=== PATIENT | male | born 1985 | race Caucasian/White ===

== ENCOUNTER 2016-09-27 17:24 | Emergency (ER) | payer SELFPAY ==
[~2016-09-27] VITALS: Ht 177.8 cm; Wt 80.0 kg
[~2016-09-27 17:24] MED LIST: ROBA750T3 PO
[2016-09-27 17:46] VITALS: BP 150/91; PULSE 101; RESP 18; TEMP 98.8; O2SAT 97
== END 2016-09-27 22:22 | disposition left against medical advice (07) ==
LOC: PHED 17:24
DX: R68.89 Other general symptoms and signs (principal)
CPT/HCPCS: 99281

== ENCOUNTER 2016-11-20 11:28 | Emergency (ER) | payer SELFPAY ==
[~2016-11-20] VITALS: Ht 177.8 cm; Wt 81.5 kg
[2016-11-20 11:30] VITALS: BP 154/88; PULSE 67; RESP 14; TEMP 98.2; O2SAT 99
--- NOTE | 2016-11-20 12:02 | PD ---
HPI Chief Complaint: Psychiatric Symptoms Time Seen by Provider: 11:56 Travel History International Travel<30 days: No Contact w/Intl Traveler<30days: No Traveled to known affect area: No History of Present Illness HPI 31 year old male presents to the emergency department requesting detox. The patient states that he is addicted to opiates. He states that he takes whatever he can get on the street including Lortab, Percocet, Dilaudid, morphine , methadone. He states that he wants to get off of the drugs. He states this started due to chronic back pain and he was prescribed Lortab and Percocet and his addiction grew from there. He states that this time he swallows the morphine because they're extended release, but snorts everything else. He denies any IV drug use. However, he is concerned he is going that direction as advised by his friends are doing. The patient states that he was detoxing yesterday, but even to his habit today and took a morphine and a methadone prior to coming into the emergency room. The patient denies any fevers. No chest pain or shortness of breath. No abdominal pain. He vomited yesterday, but none today. He has no medical complaints. He denies any suicidal or homicidal ideation. 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 Patient states that he rarely takes alcohol, admits to drinking 2 beers yesterday. He also uses tobacco. PFSH Past Medical History Hx Anticoagulant Therapy: No ADHD: Yes (ON RITALIN CHILD THROUGH [employer]) Asthma: No Blood Disorders: No Anxiety: Yes Depression: Yes Heart Rhythm Problems: No Cancer: No Cardiovascular Problems: Yes (HEART MURMUR CHILD) High Cholesterol: No Chemotherapy: No Chest Pain: No Congestive Heart Failure: No COPD: No Cerebrovascular Accident: No Diabetes: No Diminished Hearing: No Endocrine: No Gastrointestinal Disorders: Yes GERD: Yes Genitourinary: No Hypertension: No Immune Disorder: No Implanted Vascular Access Dvce: No Musculoskeletal: No Neurologic: No Psychiatric: Yes (HX OF ADHD/ ANXIETY) Reproductive: No Respiratory: No Immunizations Current: Yes Myocardial Infarction: No Radiation Therapy: No Sleep Apnea: No Thyroid Disease: No Past Surgical History Oral Surgery: Yes (WISDOM TEETH REMOVED) Other Surgery: No Social History Alcohol Use: Yes Tobacco Use: Yes (1/2 PER WEEK ) Substance Use: Yes (morphine,dilaudid,methadone,percocet) Allergies-Medications (Allergen,Severity, Reaction): Coded Allergies: Naproxen (Verified Allergy, Severe, chest flutters, 04/06/16) Uncoded Allergies: CHLAMYDIA TREATMENT (Allergy, Severe, BLEEDING OUT PORES, 01/29/16) PER PT HAD SEVERAL MEDS FOR CHLAMYDIA AND WAS HOSPITALIZED NEXT DAY FOR DRUG REACTIONS Reported Meds & Prescriptions Reported Meds & Active Scripts Active Review of Systems Except as stated in HPI: all other systems reviewed are Neg Physical Exam Narrative GENERAL: Well-nourished, well-developed male patient, afebrile. Vital signs stable. SKIN: Focused skin assessment warm/dry. HEAD: Normocephalic. Atraumatic. EYES: No scleral icterus. No injection or drainage. NECK: Supple, trachea midline. No JVD or lymphadenopathy. CARDIOVASCULAR: Regular rate and rhythm without murmurs, gallops, or rubs. RESPIRATORY: Breath sounds equal bilaterally. No accessory muscle use. Lungs sounds are clear to auscultation. GASTROINTESTINAL: Abdomen soft, non-tender, nondistended. MUSCULOSKELETAL: No cyanosis, or edema. PSYCHIATRIC: No delusional thought processes. No hallucinations. Patient denies any thoughts of hurting himself or anybody else. He is only requesting detox at this time. Data Data Last Documented VS Vital Signs Date Time Temp Pulse Resp B/P Pulse Ox O2 Delivery O2 Flow Rate FiO2 11/20/16 11:30 98.2 67 14 154/88 99 MDM Medical Decision Making Medical Screen Exam Complete: Yes Emergency Medical Condition: Yes Medical Record Reviewed: Yes Differential Diagnosis Polysubstance abuse versus requesting detox versus chronic back pain Narrative Course 31-year-old male presents to the emergency department stating that he wants detox from opiates. He states that he swallows in snorts them. He last used this morning. He denies any psychiatric complaints and has no thoughts of hurting himself or anybody else. His only request at this time is detox. He has no medical complaints. I talked to the psychiatric department who called [facility] to see if there was a male detox bed available. However, they do not have a bed available at this time. I discussed this with the patient to continues to deny any thoughts of hurting himself or anybody else. I instructed him that I will give him the number to [facility] and he should call daily to see if they have a male detox bed available. The patient verbalizes agreement to this. I instructed to return immediately especially if he has depression or thoughts of hurting himself. He verbalizes understanding. The patient was discharged in stable condition with instructions, including return instructions and follow up instructions. Diagnosis Primary Impression: Opiate abuse, continuous [facility]errals: [facility] Patient Instructions: General Instructions, Opioid Dependence (ED), Opioid Withdrawal (ED) Departure Forms: Tests/Procedures, Work Release Enter return to work date: November 24, 2016 Additional Instructions: Please call daily to [facility] for a male detox bed. Return to the emergency department immediately for any worsening symptoms. Med/Other Pt SpecificInfo: No Change to Meds Disposition: 01 DISCHARGE HOME Condition: Stable Anneliese Begum November 20, 2016 12:02
== END 2016-11-20 12:19 | disposition home or self-care (01) ==
LOC: NEPC 11:28
DX: F11.20 Opioid dependence, uncomplicated (principal); F90.9 Attention-deficit hyperactivity disorder, unspecified type; F41.9 Anxiety disorder, unspecified; F41.8 Other specified anxiety disorders; Z72.0 Tobacco use
CPT/HCPCS: 99283

== ENCOUNTER 2017-07-20 08:22 | Emergency (ER) | payer SELFPAY ==
[~2017-07-20] VITALS: Ht 177.8 cm; Wt 79.0 kg
[2017-07-20 08:48] VITALS: BP 131/80; PULSE 61; RESP 16; TEMP 98.3; O2SAT 99
--- NOTE | 2017-07-20 09:24 | PD ---
HPI Chief Complaint: Eye Problems/Injury Time Seen by Provider: 09:17 Travel History International Travel<30 days: No Contact w/Intl Traveler<30days: No Traveled to known affect area: No History of Present Illness HPI Patient comes in complaining of foreign body sensation in his left eye ongoing for 2 days. Patient states he was at work when he had some sawdust come over his safety glasses causing foreign body sensation. Patient states he has rinsed his eye as well as taking a cotton swab to the inside of his upper eyelid , and having his grandmother look for the foreign body with no improvement of symptoms. Patient states he feels symptoms are getting worse and today awoke with some crusting of his left eye causing his eye to be matted shut. Denies anything making symptoms better or worse. Denies any radiation of the pain. Describes pain as an irritation/foreign body sensation. Denies contact lens use. PFSH Past Medical History Hx Anticoagulant Therapy: No ADHD: Yes (ON RITALIN CHILD THROUGH [employer]) Asthma: No Blood Disorders: No Anxiety: Yes Depression: Yes Heart Rhythm Problems: No Cancer: No Cardiovascular Problems: Yes (HEART MURMUR CHILD) High Cholesterol: No Chemotherapy: No Chest Pain: No Congestive Heart Failure: No COPD: No Cerebrovascular Accident: No Diabetes: No Diminished Hearing: No Endocrine: No Gastrointestinal Disorders: Yes GERD: Yes Genitourinary: No Hypertension: No Immune Disorder: No Implanted Vascular Access Dvce: No Musculoskeletal: No Neurologic: No Psychiatric: Yes (HX OF ADHD/ ANXIETY) Reproductive: No Respiratory: No Immunizations Current: Yes Myocardial Infarction: No Radiation Therapy: No Sleep Apnea: No Thyroid Disease: No Past Surgical History Oral Surgery: Yes (WISDOM TEETH REMOVED) Other Surgery: No Social History Alcohol Use: Yes Tobacco Use: Yes (1/2 PER WEEK ) Substance Use: No (reformed) Allergies-Medications (Allergen,Severity, Reaction): Coded Allergies: naproxen (Unverified Allergy, Severe, chest flutters, 07/20/17) Uncoded Allergies: CHLAMYDIA TREATMENT (Allergy, Severe, BLEEDING OUT PORES, 01/29/16) PER PT HAD SEVERAL MEDS FOR CHLAMYDIA AND WAS HOSPITALIZED NEXT DAY FOR DRUG REACTIONS Reported Meds & Prescriptions Reported Meds & Active Scripts Active Erythromycin Opth Oint 5 Mg/Gm Oint 1 Applic LEFT EYE QID Review of Systems Except as stated in HPI: all other systems reviewed are Neg Physical Exam Narrative GENERAL: Well-developed, well nourished, in no acute distress, and non-ill appearing. SKIN: Focused skin assessment warm and dry. HEAD: Atraumatic. Normocephalic. EYES: Pupils equal and round. EOMI. No scleral icterus. No injection or drainage. No obvious foreign body. ENT: No nasal bleeding or discharge. Mucous membranes pink and moist. NECK: Trachea midline. Supple. No nuclear rigidity. RESPIRATORY: No accessory muscle use. No respiratory distress. MUSCULOSKELETAL: No obvious deformities. No clubbing. No cyanosis. No edema. Full range of motion. NEUROLOGICAL: Awake and alert. No obvious cranial nerve deficits. Motor grossly within normal limits. Normal speech. PSYCHIATRIC: Appropriate mood and affect; insight and judgment normal. Data Data Last Documented VS Vital Signs Date Time Temp Pulse Resp B/P (MAP) Pulse Ox O2 Delivery O2 Flow Rate FiO2 07/20/17 08:48 98.3 61 16 131/80 (97) 99 Orders Orders Proparacaine 0.5% Opth Soln (Alcaine 0.5 (07/20/17 09:30) Eye Irrigation (07/20/17 09:30) Tetanus/Diphtheria Tox Adult (Tetanus/Di (07/20/17 10:15) Ed Discharge Order (07/20/17 10:05) [facility] Medical Decision Making Medical Screen Exam Complete: Yes Emergency Medical Condition: Yes Differential Diagnosis Retained foreign body, corneal abrasion, corneal ulcer, conjunctivitis Narrative Course Patient initially reported his tetanus shot was not up-to-date then prior to receiving tetanus shot here today states that he did receive within the last year. The patient presented with suspect for foreign body to eye. The patient underwent Michel Lamp exam with stain, as well as lid eversion and eye irrigation with Joe lens. The foreign body was not seen and therefore unable to be removed without incident. No history to suspect corneal ulceration as well. There is no evidence of iritis, glaucoma, preseptal cellulitis, periorbital or orbital cellulitis. Will place patient on ophthalmologic antibiotics for infection prophylaxis until evaluation and removal of foreign body by ophthalmology. This was discussed with the patient. The patient was instructed to follow up with ophthalmology for removal. The patient was also instructed to return here if condition worsened, increased pain, decreased vision, swelling around the eye or as needed. Ophthalmology referral was given. The patient agreed with plan. Patient in no obvious distress upon re-evaluation. Patient was asked if they wanted to speak to my attending, which the patient did not wish to do at this time. Any questions/concerns in reference to patient diagnosis/condition discussed and clarified prior to patient's discharge. Reinforced sheer importance of close follow up with patient's primary physician or primary care clinic. Instructed patient to return to ED immediately, if symptoms return/ worsen. Patient showed understanding of above instructions. Further instructions and recommendations were detailed in discharge paperwork. Patient ambulated without difficulty out of ED at discharge. Procedures Procedure Narrative Verbal consent was obtained. Affected eye was anesthetized using proparacaine. Fluorescein staining and Wood lamp exam performed with no uptake seen. Negative Leena sign. No hyphema, hyperemia, or rust ring. Eyelid was everted with no foreign body noted. No tenderness bilateral temporal arteries to palpation. Eye was irrigated using a Joe's lens a liter of fluid without improvement of symptoms. Patient reports pain is worse with causing his eye improved with keeping his eye open. Eyelid was everted a second time after irrigation still no foreign body noted. Patient tolerated procedure well. Diagnosis Primary Impression: Sensation of foreign body in eye Referrals: Avani Dyson MD 1 day Patient Instructions: Eye Foreign Body (ED), General Instructions Additional Instructions: Follow-up with Dr. Dyson today or tomorrow for reevaluation. Contact her office for an appointment. Take all medication as prescribed. Return to the emergency department if symptoms get worse. Med/Other Pt SpecificInfo: Prescription(s) given Scripts Erythromycin Opth Oint (Erythromycin Opth Oint) 5 Mg/Gm Oint 1 APPLIC LEFT EYE QID for Infection, #1 TUBE 0 Refills Prov: Eric Hernandez MD 07/20/17 Disposition: 01 DISCHARGE HOME Condition: Stable Vinnie Lugo Jul 20, 2017 09:24
[2017-07-20] MEDS ORDERED: PROPARACAINE HCL 0.5% OPHT SOLN 15 ML BTL LEFT EYE ONE (09:30)
[2017-07-20] MEDS ORDERED: ERYTOIN10 LEFT EYE (10:06)
[2017-07-20] MEDS ORDERED: TETANUS/DIPHTHERIA TOXOID ADULT 0.5 ML VIAL IM ONE (10:15)
== END 2017-07-20 10:36 | disposition home or self-care (01) ==
LOC: PHEFT 08:22
DX: H57.8 Other specified disorders of eye and adnexa (principal); F41.9 Anxiety disorder, unspecified; F32.9 Major depressive disorder, single episode, unspecified; R01.1 Cardiac murmur, unspecified; K21.9 Gastro-esophageal reflux disease without esophagitis
CPT/HCPCS: 90471

== ENCOUNTER 2017-08-01 09:26 | Emergency (ER) | payer SELFPAY ==
[~2017-08-01] VITALS: Ht 177.8 cm; Wt 75.0 kg
[~2017-08-01 09:26] MED LIST changes: +ERYTOIN10 LEFT EYE; -ROBA750T3 PO
[2017-08-01 09:31] VITALS: BP 153/80; PULSE 86; RESP 16; TEMP 99.1; O2SAT 97
[2017-08-01 09:38] VITALS: BP 147/94; PULSE 90; RESP 17; TEMP 98.8; O2SAT 99
[2017-08-01] MEDS ORDERED: ONDANSETRON HCL 4 MG/2 ML VIAL IV PUSH ONE (09:45)
[2017-08-01] MEDS ORDERED: MORPHINE SULFATE 2 MG/ML INJ IV PUSH ONE (09:45)
--- NOTE | 2017-08-01 09:48 | PD ---
HPI Chief Complaint: Fall Time Seen by Provider: 09:41 Travel History International Travel<30 days: No Contact w/Intl Traveler<30days: No Traveled to known affect area: No History of Present Illness HPI 31-year-old male patient with history of no significant past medical issues, presents to the ER today because he states that he was not on a 10 foot ladder an had slipped in fell on the latter but his left arm got caught in 1 of the rungs and he will suspended by the arm, had to climb back up on the ledge and get his arm freed. He has currently complaining of left arm pain. He denies any head injury, loss of consciousness, chest pains, neck pains, or any other issues or injuries. He denies fall to the ground. Modifying Factors: None Associated Signs & Symptoms: Left arm injury, fall from ladder Risk Factors: None PFSH Past Medical History Hx Anticoagulant Therapy: No ADHD: Yes (ON RITALIN CHILD THROUGH [employer]HS[employer]) Asthma: No Blood Disorders: No Anxiety: Yes Depression: Yes Heart Rhythm Problems: No Cancer: No Cardiovascular Problems: Yes (HEART MURMUR CHILD) High Cholesterol: No Chemotherapy: No Chest Pain: No Congestive Heart Failure: No COPD: No Cerebrovascular Accident: No Diabetes: No Diminished Hearing: No Endocrine: No Gastrointestinal Disorders: Yes GERD: Yes Genitourinary: No Hypertension: No Immune Disorder: No Implanted Vascular Access Dvce: No Musculoskeletal: No Neurologic: No Psychiatric: Yes (HX OF ADHD/ ANXIETY) Reproductive: No Respiratory: No Immunizations Current: Yes Myocardial Infarction: No Radiation Therapy: No Sleep Apnea: No Thyroid Disease: No Past Surgical History Oral Surgery: Yes (WISDOM TEETH REMOVED) Other Surgery: No Social History Alcohol Use: Yes Tobacco Use: Yes (1/2 PER WEEK ) Substance Use: No (reformed) Allergies-Medications (Allergen,Severity, Reaction): Coded Allergies: naproxen (Unverified Allergy, Severe, chest flutters, 08/01/17) aspirin (Verified Allergy, Unknown, 08/01/17) Uncoded Allergies: CHLAMYDIA TREATMENT (Allergy, Severe, BLEEDING OUT PORES, 01/29/16) PER PT HAD SEVERAL MEDS FOR CHLAMYDIA AND WAS HOSPITALIZED NEXT DAY FOR DRUG REACTIONS Reported Meds & Prescriptions Reported Meds & Active Scripts Active Review of Systems Except as stated in HPI: all other systems reviewed are Neg Physical Exam Narrative GENERAL: Well-developed young male patient currently in mild distress. Awake an oriented 3. SKIN: Focused skin assessment warm/dry. HEAD: Atraumatic. Normocephalic. EYES: Pupils equal and round. No scleral icterus. No injection or drainage. ENT: No nasal bleeding or discharge. Mucous membranes pink and moist. NECK: Trachea midline. No JVD. Supple. No midline C-spine tenderness. CARDIOVASCULAR: Regular rate and rhythm. No murmur appreciated. RESPIRATORY: No accessory muscle use. Clear to auscultation. Breath sounds equal bilaterally. GASTROINTESTINAL: Abdomen soft, non-tender, nondistended. Hepatic and splenic margins not palpable. MUSCULOSKELETAL: No obvious deformities. No clubbing. No cyanosis. No edema. EXTREMITIES: No clubbing, cyanosis, or edema. There his notable edema in tenderness over the left forearm. No tenderness to palpation at the snuffbox or hand or wrist area. Neurovascularly intact. NEUROLOGICAL: Awake and alert. No obvious cranial nerve deficits. Motor grossly within normal limits. Normal speech. PSYCHIATRIC: Appropriate mood and affect; insight and judgment normal. Data Data Last Documented VS Vital Signs Date Time Temp Pulse Resp B/P (MAP) Pulse Ox O2 Delivery O2 Flow Rate FiO2 08/01/17 09:38 98.8 90 17 147/94 (111) 99 Orders Orders Elbow, Limited (Ap&Lat) (08/01/17 09:41) Forearm (2vws) (08/01/17 09:41) Wrist, Limited (Ap&Lat) (08/01/17 09:41) Morphine Inj (Morphine Inj) (08/01/17 09:45) Ondansetron Inj (Zofran Inj) (08/01/17 09:45) Ed Discharge Order (08/01/17 11:01) [facility] Medical Decision Making Medical Screen Exam Complete: Yes Emergency Medical Condition: Yes Medical Record Reviewed: Yes Interpretation(s) Last 24 hours Impressions Wrist X-Ray 08/01/17940 Signed Impressions: Service Date/Time: Tuesday, August 01, 2017 10:16 - CONCLUSION: Normal examination for a patient of this age. Jamar Harmon MD Radius/Ulna X-Ray 08/01/17940 Signed Impressions: Service Date/Time: Tuesday, August 01, 2017 10:14 - CONCLUSION: Normal examination for a patient of this age. Jamar Harmon MD Elbow X-Ray 08/01/17 0941 Signed Impressions: Service Date/Time: Tuesday, August 01, 2017 10:17 - CONCLUSION: Normal examination for a patient of this age. Jamar Harmon MD Differential Diagnosis Left arm injury: Contusion versus strain versus fractures Narrative Course X-rays do not show any signs of acute fractures. It appears that he has contusions to the forearm. At this point, he has neurovascularly intact. The plan would be to release him with symptomatic relief for pain, ice, elevate the extremity. Follow-up with primary care doctor. Return for any worsening in pain, swelling, an as needed. The plan was not discussed with him when he states understanding. Diagnosis Primary Impression: Contusion of left forearm Med/Other Pt SpecificInfo: Prescription(s) given Scripts Tramadol-Acetaminophen (Tramadol-Acetaminophen) 37.5-325 mg Tab 1 TAB PO Q6H Y for PAIN, #12 TAB 0 Refills Prov: Robby Mello MD 08/01/17 Disposition: 01 DISCHARGE HOME Condition: Stable Robby Mello MD Aug 01, 2017 09:48
--- NOTE | 2017-08-01 10:41 | RADRPT ---
EXAM DATE/TIME: 08/01/2017 10:14 [facility] COMPARISON: No previous studies available for comparison. INDICATIONS : Fell off ladder pain left wrist radiating into left elbow. MEDICAL HISTORY : None. SURGICAL HISTORY : None. ENCOUNTER: Initial ACUITY: 1 day PAIN SCORE: 10/10 LOCATION: Left forearm. FINDINGS: Two view examination of the left forearm demonstrates no evidence of fracture or dislocation. Bony m ineralization is normal. The soft tissue structures are intact. CONCLUSION: Normal examination for a patient of this age. Jamar Harmon MD on August 01, 2017 at 10:38 Board Certified Radiologist. This report was verified electronically.
--- NOTE | 2017-08-01 10:42 | RADRPT ---
EXAM DATE/TIME: 08/01/2017 10:17 [facility] COMPARISON: No previous studies available for comparison. INDICATIONS : Fell off ladder pain left wrist radiating into left elbow. MEDICAL HISTORY : None. SURGICAL HISTORY : None. ENCOUNTER: Initial ACUITY: 1 day PAIN SCORE: 10/10 LOCATION: Left elbow. FINDINGS: Two view examination of the left elbow demonstrates no soft tissue swelling, joint effusion, fracture or dislocation. Bony mineralization is normal. CONCLUSION: Normal examination for a patient of this age. Jamar Harmon MD on August 01, 2017 at 10:40 Board Certified Radiologist. This report was verified electronically.
--- NOTE | 2017-08-01 10:42 | RADRPT ---
EXAM DATE/TIME: 08/01/2017 10:16 [facility] COMPARISON: No previous studies available for comparison. INDICATIONS : Fell off ladder pain left wrist radiating into left elbow. MEDICAL HISTORY : None. SURGICAL HISTORY : None. ENCOUNTER: Initial ACUITY: 1 day PAIN SCORE: 10/10 LOCATION: Left wrist FINDINGS: Two view examination of the left wrist demonstrates no soft tissue swelling, dislocation, or fracture . The joint spaces are maintained. Bony mineralization is normal. CONCLUSION: Normal examination for a patient of this age. Jamar Harmon MD on August 01, 2017 at 10:39 Board Certified Radiologist. This report was verified electronically.
[2017-08-01] MEDS ORDERED: TRAM-388 PO (11:03)
== END 2017-08-01 12:14 | disposition home or self-care (01) ==
LOC: NEPC 09:26
DX: S50.12XA Contusion of left forearm, initial encounter (principal); W11.XXXA Fall on and from ladder, initial encounter; F32.9 Major depressive disorder, single episode, unspecified; F41.9 Anxiety disorder, unspecified; F90.9 Attention-deficit hyperactivity disorder, unspecified type; K21.9 Gastro-esophageal reflux disease without esophagitis; F17.200 Nicotine dependence, unspecified, uncomplicated
CPT/HCPCS: 73070; 73090; 73100; 96374; 96375; 99284; J2270; J2405; L0150